=== PATIENT | male | born 2000 | race Caucasian/White ===

== ENCOUNTER → 2024-02-26 08:08 | Outpatient (BNVA) | payer SELFPAY | PROVIDERS: Visit Provider Internal Medicine | DX: Z02.1 Encounter for pre-employment examination (principal) | CPT/HCPCS: 82565; 82947; 83036; 84460; 85014; 85018; 85048; 85049; 86706; 86780; 86803; 87389 ==

== ENCOUNTER → 2024-03-03 07:53 | Outpatient (BNVA) | payer SELFPAY | DX: Z13.6 Encounter for screening for cardiovascular disorders (principal) | CPT/HCPCS: 93308 ==

== ENCOUNTER → 2024-03-03 08:18 | Outpatient (REF) | payer SELFPAY ==
--- NOTE | 2024-03-03 08:22 | CA_ITS ---
Acquisition Time: 2024-03-03 08:26:36 Total Exercise Time: 00:14:05 Test Indications: PRE EMPLOYMENT Medications: SEE H Protocol: YVROSE Max HR: 173 BPM 89% of Pred: 194 BPM Max BP: 210/080 mmHG Max Work Load: 17.2 METS Exercise stress test with exercise 14 min 5 sec of Yvrose protocol, achieving 89% MPHR, 17.1 METs, without anginal symptoms, without arrythmia, with hypertensive response to exercise with max BP 210/80, without EKG changes meeting criteria for ischemia. After 11 min recovery BP down to 140/80, asymptomatic. Test reviewed with Dr Sheehan Referred By: Colleen Garcia Overread By: BOOGIE LARA
== END ==
LOC: HO.CARD 08:18
PROVIDERS: Visit Provider Physician Assistant
DX: Z02.1 Encounter for pre-employment examination (principal)
CPT/HCPCS: 93017

== ENCOUNTER → 2024-03-03 08:22 | Outpatient (BNV) | payer SELFPAY | PROVIDERS: Visit Provider Nurse Practitioner Family | DX: R03.0 Elevated blood-pressure reading, without diagnosis of hypertension (principal) | CPT/HCPCS: 93016; 93018 ==